=== PATIENT | male | born 1950 | race Caucasian/White ===

== ENCOUNTER → 2017-10-27 | Outpatient (CLI) | payer BC ==
[2017-10-25 16:20] VITALS: BMI 34.0
[~2017-10-27] VITALS: Ht 162.6 cm; Wt 87.7 kg
[~2017-10-27] MED LIST: ALLO100T PO; ASPI81TA28 PO; CARB25TA16 PO; CEFAZOLIN 2000MG IV PUSH 15 ML IV SCH; CHOL1TAB42 PO; EZET10TA63 PO; GABA600T PO; INSU100I SQ; INSU300I2 SQ; LACTATED RINGER'S 1000ML 1,000 ML IV SCH; RASA1TAB PO; ROSU40TA PO; SEMA2INJ SQ; SODIUM CHLORIDE 0.9% 1000ML 1,000 ML IV SCH
[2017-10-27 08:48] VITALS: Ht 162.6 cm; Wt 87.7 kg
--- NOTE | 2017-10-27 09:10 | PAT Medication Instructions ---
Service Date Oct 27, 2017. Current Home Medication List Allopurinol (Zyloprim), 100 MG PO BID Aspirin (Aspirin Ec), 81 MG PO QPM Carbidopa/Levodopa (Sinemet Cr 25MG/100MG), 1 TAB PO TID Cholecalciferol (Vitamin D), 5,000 UNITS PO QPM Ezetimibe (Zetia), 10 MG PO QAM Gabapentin (Neurontin), 600 MG PO BID Insulin Glargine (Toujeo Max Solostar), 120 UNITS SQ QAM Insulin Lispro (Human) (Humalog), 10 UNITS SQ QAM Insulin Lispro (Human) (Humalog), 10 UNITS SQ NOON Insulin Lispro (Human) (Humalog), 26 UNITS SQ DINNER Rasagiline Mesylate (Azilect), 1 MG PO QAM Rosuvastatin Calcium (Crestor), 40 MG PO QPM Semaglutide (Ozempic), 0.25 MG SQ WK Medication Instructions For Your Scheduled Surgery -Check with surgeon for instructions: Aspirin (Aspirin Ec), 81 MG PO QPM -Continue as directed: Semaglutide (Ozempic), 0.25 MG SQ WK - Hold the following medications 2 weeks prior to surgery: Rasagiline Mesylate (Azilect), 1 MG PO QAM - Hold the following medications the morning of surgery: Insulin Lispro (Human) (Humalog), 10 UNITS SQ QAM - Take the following medications the morning of surgery with a sip of water: Allopurinol (Zyloprim), 100 MG PO BID Carbidopa/Levodopa (Sinemet Cr 25MG/100MG), 1 TAB PO TID Ezetimibe (Zetia), 10 MG PO QAM Gabapentin (Neurontin), 600 MG PO BID - Take the following medications as scheduled the afternoon/night before surgery : Allopurinol (Zyloprim), 100 MG PO BID Carbidopa/Levodopa (Sinemet Cr 25MG/100MG), 1 TAB PO TID Cholecalciferol (Vitamin D), 5,000 UNITS PO QPM Gabapentin (Neurontin), 600 MG PO BID Insulin Lispro (Human) (Humalog), 10 UNITS SQ NOON Insulin Lispro (Human) (Humalog), 26 UNITS SQ DINNER Rosuvastatin Calcium (Crestor), 40 MG PO QPM - For Insulin Dependent Diabetic patients: Test blood sugar A.M. of surgery. - If BLOOD SUGAR IS MORE THAN 150, take half of your regular dose of: Insulin Glargine (Toujeo Max Solostar) -- TAKE 60 UNITS - If BLOOD SUGAR IS LESS THAN 150, do not take any: Insulin Glargine ( Toujeo Max Solostar) If you have any questions please call us at [phone] or [phone] or [phone]
--- NOTE | 2017-10-27 09:43 | DIAGNOSTIC IMAGING REPORT ---
CHEST 2 VIEWS ROUTINE CLINICAL HISTORY: PAT preoperative evaluation COMPARISON STUDY: No previous studies for comparison. FINDINGS: The bones soft tissues and hemidiaphragms are normal. The cardiomediastinal silhouette is normal. The lungs are clear. The pulmonary vasculature is normal. IMPRESSION: Negative chest. The above report was generated using voice recognition software. It may contain grammatical, syntax or spelling errors. Electronically signed by: Doc Lyons M.D. 10/27/2017 9:42 AM Dictated Date/Time: 10/27/2017 9:41 AM
[2017-10-27 10:42] LABS: BASO % 0.4 %; BASO ABS # 0.05 K/uL (0-0.2); EOS % 2.4 %; HEMATOCRIT 43.9 % (42-52); HEMOGLOBIN 15.1 g/dL (14.0-18.0); IG# 0.06 K/uL (0.00-0.02); LYMPH % 31.6 %; MEAN CELL VOLUME 85.9 fL (80-100); MEAN CORPUSCULAR HEMOGLOBIN 29.5 pg (25-34); MEAN CORPUSCULAR HGB CONC 34.4 g/dl (32-36); MEAN PLATELET VOLUME 9.5 fL (7.4-10.4); MONO % 7.2 %; MONO ABS # 0.91 K/uL (0.11-0.59); NEUT % 57.9 %; NEUT ABS # 7.32 K/uL (1.4-6.5); PLATELET COUNT 254 K/uL (130-400); RED CELL DISTRIBUTION WIDTH SD 43.5 fL (36.4-46.3); WHITE BLOOD COUNT 12.64 K/uL (4.8-10.8)
[2017-10-27 10:50] LABS: CALCIUM 8.7 mg/dl (8.5-10.1); CREATININE 0.72 mg/dl (0.60-1.40); POTASSIUM 4.3 mmol/L (3.5-5.1)
[2017-10-27 10:56] LABS: HEMOGLOBIN A1C 11.8 % (4.5-5.6)
--- NOTE | 2017-11-19 09:55 | CODING QUERY NO DIAGNOSIS ---
TREATMENT RENDERED WITHOUT A DIAGNOSIS 49 To promote full compliance with coding requirements relating to patient care, physician participation is requested in all cases of valving machine operator uncertainty. Please assist us with providing a diagnosis/symptom for the test(s) below: A diagnosis/symptom was not documented on your Order. A valid diagnosis/symptom is required to bill all insurances. Please remember that we are unable to code a diagnosis of rule out, probable, possible, questionable, or suspected. DOS 10/27/17 Tests that require a diagnosis: * HEMOGLOBIN A1C DIAGNOSIS: * CBC W/AUTO DIFF DIAGNOSIS: * PARTIAL RENAL PROFILE DIAGNOSIS: * PTT DIAGNOSIS: * PROTHROMBIN TIME DIAGNOSIS: * ECG ROUTINE DIAGNOSIS: * CHEST 2 VIEWS DIAGNOSIS: Provider Signature: Date: Thank you Mally [facility] Information Management Once completed, please kindly fax back to [phone] For questions please call [phone]
== END | disposition home or self-care (01) ==
LOC: C.LAB 08:00 → EDSTATUS 11-11 14:06
PROVIDERS: ATTEND Orthopaedic Surgery Orthopaedic Surgery of the Spine
DX: Z01.818 Encounter for other preprocedural examination (principal); M48.061 Spinal stenosis, lumbar region without neurogenic claudication; M76.899 Other specified enthesopathies of unspecified lower limb, excluding foot; M25.559 Pain in unspecified hip